=== PATIENT | female | born 1945 | race Caucasian/White ===

== ENCOUNTER → 2021-01-26 08:33 | Outpatient (CLI) | payer MEDICARE ==
[2020-10-07 07:30] VITALS: BMI 31.4
[~2021-01-26 08:33] MED LIST: AMBIEN10 MG PO; BAYER CHEWABLE81 MG PO; BUPROPION HCL100 M1 PO; CETIRIZINE HCL5 MG PO; GABAPENTIN100 MG PO; K-DUR20 MEQ PO; LEVOTHYROXINE50 MCG PO; LOPRESSOR25 MG PO; NORVASC5 MG PO; PEPCID AC20 MG PO; SALAGEN5 MG PO; VASOTEC10 MG PO; XANAX0.5 MG PO
== END | disposition home or self-care (01) ==
LOC: D.US 08:33
PROVIDERS: ATTEND Nurse Practitioner
DX: I70.219 Atherosclerosis of native arteries of extremities with intermittent claudication, unspecified extremity (principal)

== ENCOUNTER 2021-02-24 11:25 | Day surgery (SDC) | payer MEDICARE ==
[~2021-02-24] VITALS: Ht 154.9 cm; Wt 74.4 kg
--- NOTE | ~2021-02-24 | HEMODYNAMI ---
PATIENT:ZACH QUIJANO MEDICAL RECORD: [id number] : 43 LOCATION:[facility] ADMISSION DATE: 02/24/21 Generatedon:113:56 Patient name: ZACH QUIJANO Patient #: [id number] SSN: [id number] : 1945 Date of study: 02/24/2021 Page: Of Hemodynamic Procedure Report Patient Data Patient Demographics Procedure consent was obtained First Name: ZACH Gender: Female Last Name: SAMM : 1945 [facility] Initial: HUMA Age: 75 year(s) Patient #: [id number] Race: SSN: [id number] Additional ID: [id number] Contact details [address]: [address] [place] [address] RO[address] State: [place] City: [place] Zip code: [address] Past Medical History Allergies Allergen Reaction Date Comments Reported Other allergy 10/07/2020 codeine, hydrocodone, lidocaine Other allergy 02/24/2021 CODEINE, HYDROCODONE, LIDOCAINE Admission Admission Data Admission Date: 02/24/2021 Admission Time: 11:25 Lab Results Lab Result Date: 02/24/2021 Lab Result Time: 0:00 Biochemistry Name Units Result Min Max BUN mg/dl 12 --(-*--)-- 7 18 Creatinine mg/dl 1.2 --(---*)-- 0.6 1.3 CBC Name Units Result Min Max Hemoglobin g/dl 12.8 -*(----)-- 13.5 17.5 Procedure Procedure Types Cath Procedure Peripheral Cath Diagnostic Procedure Unit Nurse Peripheral Procedures AFRO Diagnostic Procedure Description Procedure Date Procedure Date: 02/24/2021 Procedure Start Time: 13:43 Procedure End Time: 13:55 Procedure Staff Name Function Geoffrey Lanadverde MD Performing Physician Gregorio Wilburn RT Monitor Patricia Huynh RT Scrub Valentina Ragland RN Nurse Procedure Data Cath Procedure Fluoroscopy Diagnostic fluoroscopy Total fluoroscopy Time: 0.5 time: 0.5 min min Diagnostic fluoroscopy Total fluoroscopy dose: 62 dose: 62 mGy mGy Contrast Material Contrast Material Type Amount (ml) Isovue 300 53 Entry Location Entry Primary Successful Side Size Upsize Upsize Entry Closure Succe ssful Closure Location (Fr) 1 (Fr) 2 (Fr) Remarks Device Remarks Femoral Right 5 Fr Lidocaine Exoseal artery not used for entry, pt is allergic Estimated blood loss: 5 ml Diagnostic catheters Device Type Used For End Catheter Placement DIAGNOSTIC UF 5Fr Abdominal catheter ([id number]) aortogram with runoff Procedure Complications No complications Procedure Medications Medication Administration Route Dosage Oxygen etCO2 Nasal cannula 2 l/min Heparin Flush Bag added to field 2 bags (1000units/500ml NS) 0.9% NaCl I.V. 100 ml/hr Versed I.V. 1 mg Fentanyl I.V. 50 mcg Versed I.V. 1 mg Fentanyl I.V. 50 mcg Versed I.V. 1 mg Fentanyl I.V. 25 mcg Hemodynamics Rest HGB: 12.8 (g/dl) Heart Rate: 65 (bpm) Snapshots Pre Cath Intra NCS Post Cath Vital Signs Time Heart Resp SPO2 etCO2 NIBP Rhythm Pain Sedation Rate (ipm) (%) (mmHg) (mmHg) Status Level (bpm) 13:32:39 63 18 100 35.9 127/40(81) NSR 0 (11) 10(A) , No pain 13:36:55 63 15 96 11.2 104/55(77) NSR 0 (11) 10(A) , No pain 13:41:07 63 16 100 0 103/42(74) NSR 0 (11) 9(A) , No pain 13:46:10 59 13 100 17.9 124/50(89) NSR 0 (11) 9(A) , No pain 13:50:24 66 14 99 14.2 96/49(76) NSR 0 (11) 9(A) , No pain 13:53:24 63 14 100 0 103/43(62) NSR 0 (11) 10(A) , No pain Medications Time Medication Route Dose Verified Delivered Reason Notes Effe ctiveness by by 13:31:44 Oxygen etCO2 2 Geoffrey Montgomery used for Nasal l/min [facility] news clipping cutter cannula 13:32:59 Heparin Flush added 2 Geoffrey aHle used for Bag to bags [facility] procedure (1000units/500ml field MD FRANCO NS) 13:33:07 0.9% NaCl I.V. 100 Geoffrey Montgomery Per ml/hr [facility] Ragland RN physician 13:36:01 Versed I.V. 1 mg Geoffrey Chaseie for AkhilHarrison Ragland RN sedation 13:36:07 Fentanyl I.V. 50 Geoffrey Chaseie for [facility] Ragland RN sedation 13:40:01 Fentanyl I.V. 50 Geoffrey Chaseie for [facility] Harrison Ragland RN sedation 13:40:56 Versed I.V. 1 mg [address] [facility] Harrison Ragland RN sedation 13:45:42 Versed I.V. 1 mg [address] [facility] Harrison Ragland RN sedation 13:45:46 Fentanyl I.V. 25 Geoffrey Chaseie for [facility] Harrison Ragland RN sedation Procedure Log Time Note 13:15:19 Gregorio Akila RT(R) sent for patient. Start room use. 13:15:20 Informed consent obtained and on chart 13:17:13 Procedure Status Peripheral. 13:17:15 Time tracking: Regular hours (M-F 7:00 - 5:00) 13:17:19 Plan of Care:Hemodynamics will remain stable., Cardiac rhythm will remain stable., Comfort level will be maintained., Respiratory function will remain adequate., Patient/ family verbilizes understanding of procedure., Procedure tolerated without complication., Recovers from procedure without complications.. 13:20:55 H&P Date Dictated: 02/18/2021 Within 30 days and on chart., H&P Addendum completed by physician on day of procedure. (MUST COMPLETE FOR ALL OUTPATIENTS). 13:21:40 Patient allergic to Other allergyCODEINE, HYDROCODONE, LIDOCAINE 13:21:42 Is the patient allergic to Iodine/contrast media? No. 13:22:42 Patient received from Pre/Post Procedure Room to CCL 2 Alert and oriented. Tansferred to table in Supine position. 13:22:43 Warm blankets applied, and daisy hugger turned on for patient comfort. 13:22:43 Correct patient and procedure confirmed by team. 13:22:44 ECG and BP/O2 sat monitors applied to patient. 13:31:20 Vital chart was started 13:31:44 Oxygen 2 l/min etCO2 Nasal cannula was administered by Valentina Ragland RN; used for procedure; Verbal order read back and verified. 13:32:45 Baseline sample Acquired. 13:32:49 Rhythm: sinus rhythm 13:32:50 Full Disclosure recording started 13:32:51 Pre-procedure instructions explained to patient. 13:32:51 Pre-op teaching completed and patient verbalized understanding. 13:32:54 Family unavailable. 13:32:57 Patient NPO since Midnight. 13:32:59 Heparin Flush Bag (1000units/500ml NS) 2 bags added to field was administered by Geoffrey Landaverde MD; used for procedure; Verbal order read back and verified. 13:33:04 Is patient on blood thinner?No 13:33:07 0.9% NaCl 100 ml/hr I.V. was administered by Valentina Ragland RN; Per physician; Verbal order read back and verified. 13:33:07 Patient diabetic? No. 13:33:08 ----Pre-sedation anethsthesia assessment.---- 13:33:11 Previous problem with sedation/anesthesia? No ? 13:33:15 Snore? No 13:33:28 Sleep apnea? No 13:33:30 Deviated septum? No 13:33:32 Opens mouth fully? Yes 13:33:34 Sticks out tongue? No 13:33:53 Pre procedure: right dorsailis pedis pulse 1+ Palpable, but thready & weak; easily obliterated 13:33:56 Pt states allergy to lidocaine after having a skin biopsy. 13:33:57 Pre procedure: left dorsailis pedis pulse 0-Absent 13:34:01 Patient pain scale 0/10 ?. 13:34:06 IV patent on arrival in right antecubital with 0.9% NaCl at [facility]. 13:34:49 Lab Result : BUN 12 mg/dl 13:34:49 Lab Result : Creatinine 1.2 mg/dl 13:34:49 Lab Result : Hemoglobin 12.8 g/dl 13:34:53 Lab results completed and on chart. 13:34:57 Bilateral groins area was prepped with chlora-prep and draped in sterile fashion 13:34:58 Alarms reviewed by R. N. 13:34:59 Sharps counted by scrub and verified by R.N. 13:35:00 Physician arrived 13:35:00 --------ALL STOP TIME OUT------ 13:35:01 Final Timeout: patient, procedure, and site verified with staff and physician. All members of the team are in agreement. 13:35:04 Bilateral groins site verified by team. 13:35:10 Fire Safety Assessment: A--An alcohol-based skin anteseptic being used preoperatively., B--The operative or invasive procedure is being performed above the xiphoid process or in the oropharynx., C--Open oxygen or nitrous oxide is being used., D--An ESU, laser, or fiber-optic light is being used., E--There are other possible contributors. 13:35:14 Physical assessment completed. ASA score P 2 - A patient with mild systemic disease as per Geoffrey Landaverde MD. 13:35:24 3a) 45-59 Moderately reduced kidney function. 13:35:43 Maximum allowable contrast dose (3.7 X eGFR X 0.75)128 ml. 13:35:47 Sedation plan: IV Moderate Sedation Medication:Versed, Fentanyl 13:36:01 Versed 1 mg I.V. was administered by Valentina Ragland RN; for sedation; Verbal order read back and verified. 13:36:07 Fentanyl 50 mcg I.V. was administered by Valentina Ragland RN; for sedation; Verbal order read back and verified. 13:38:25 Use device set Femoral Dx 13:38:35 ACIST Syringe (88258) opened to sterile field. 13:38:35 Bag Decanter (2002S) opened to sterile field. 13:38:36 Medline Cath Pack ([id number]) opened to sterile field. 13:38:38 ACIST Hand Control (62807) opened to sterile field. 13:38:38 ACIST Manifold (67128) opened to sterile field. 13:38:40 Tegaderm 4 x 4 (1626W) opened to sterile field. 13:38:43 SHEATH 5FR Dawson (KCQ970) opened to sterile field. 13:38:44 EMERALD Guide Wire (344-340) opened to sterile field. 13:40:01 Fentanyl 50 mcg I.V. was administered by Valentina Ragland RN; for sedation; Verbal order read back and verified. 13:40:56 Versed 1 mg I.V. was administered by Valentina Ragland RN; for sedation; Verbal order read back and verified. 13:43:34 Zero performed for pressure channel P1 13:43:38 Procedure started. 13:44:30 A 5 Fr sheath was inserted into the Right Femoral arteryLidocaine not used for entry, pt is allergic 13:44:46 A DIAGNOSTIC UF 5Fr catheter ([id number]) was advanced over the wire and used for Abdominal aortogram with runoff. 13:45:25 Abdominal angiogram w/ runoff was performed. 13:45:42 Versed 1 mg I.V. was administered by Valentina Ragland RN; for sedation; Verbal order read back and verified. 13:45:46 Fentanyl 25 mcg I.V. was administered by Valentina Ragland RN; for sedation; Verbal order read back and verified. 13:47:44 Angiography was performed. 13:47:49 Abdominal Aortagram was performed. 13:47:59 Left leg angiography performed. 13:48:07 Right Leg angiography performed. 13:48:16 Catheter exchanged over wire. 13:48:42 Contrast amount:Isovue 300 53ml. 13:48:50 Sheath removed intact; hemostasis achieved with Exoseal to the Right Femoral artery. 13:51:50 Procedure ended.(Physican Out) 13:53:09 Fluoroscopy time 00.50 minutes. 13:53:18 Fluoroscopy dose: 62 mGy 13:53:18 Flurop Dose total: 62 13:53:31 Dose Area Product 8190 mGy/cm. 13:53:34 Maximum allowable dose exceeded? No. 13:53:35 Sharps counted by scrub and verified by R.N. 13:53:42 Post-op/insertion site Right Femoral artery dressed using a 4 x 4 and Tegaderm. 13:53:45 Post right femoral artery:stable 13:53:47 Post Procedure Pulses reassessed and unchanged 13:53:49 Post procedure: right dorsailis pedis pulse 1+ Palpable, but thready & weak; easily obliterated. 13:53:55 Post-procedure physical assessment completed. ASA score P 1 - A normal healthy patient as per Geoffrey Landaverde MD. 13:53:57 Post procedure rhythm: sinus rhythm 13:54:00 Estimated blood loss: 5 ml 13:54:02 Post procedure instruction explained to patient.Patient verbalizes understanding. 13:54:05 Procedure and supply charges have been captured, reviewed, submitted and are correct. 13:54:10 EXOSEAL 5Fr (EX500) opened to sterile field. 13:54:30 Procedure Complication : No complications 13:54:33 Vital chart was stopped 13:54:41 AFRO Findings: PVD: mild to moderate (<70%) 13:54:45 Operative report dictated upon procedure completion. 13:54:49 See physician's report for complete and final results. 13:54:53 Report given to Pre/Post Procedure Room. 13:54:58 Patient transfered to Pre/Post Procedure Room with Stretcher. 13:55:00 Procedure ended. 13:55:00 Full Disclosure recording stopped 13:55:08 End room use (Document Last) 13:55:42 End room use (Document Last) 13:56:10 End room use (Document Last) Device Usage Item Name Manufacture Quantity Catalog Hospital Part Current Minimal L ot# / Number Charge Number Stock Stock Serial# Code ACIST Acist 1 62313 337162 996180 476461 20 Syringe Medical (16038) Systems Inc Bag Microtek 1 692274 07425 403320 5 Decanter Medical Inc. () Medline Medline 1 [id number] 566894 34014 962465 5 Cath Pack ([id number]) ACIST Hand Acist 1 98395 086821 028162 808292 5 Control Medical (44349) Systems Inc ACIST Acist 1 19508 978449 866598 768452 5 Manifold Medical (91987) Systems Inc Tegaderm 4 3M 1 1626W 063512 924035 423768 5 x 4 (1626W) SHEATH 5FR Terumo 1 RGI721 312690 836418 214512 5 Dawson (RVF322) EMERALD Cardinal 1 502-455 935046 035147 143574 5 Guide Wire Health (502-455) DIAGNOSTIC Cardinal 1 [id number] 712077 143205 426496 10 UF 5Fr Health catheter ([id number]) EXOSEAL 5Fr Cardinal 1 EX500 105713 088131 895507 10 (EX500) Health Signature Audit [place] Stage Time Signature Unsigned Intra-Procedure 02/24/2021 Gregorio Wilburn RT(R) 1:55:43 PM Intra-Procedure 02/24/2021 Valentina Ragland RN 1:56:10 PM Intra-Procedure 02/24/[address] 1:56:32 PM Harrison FRANCO Signatures Performing Physician : Signature : Geoffrey Landaverde MD Date : Time : Monitor : Gregorio Wilburn RT Signature : Date : Time : Nurse : Valentina Ragland RN Signature : Date : Time : [facility] [address] [place] [address]
--- NOTE | ~2021-02-24 | OP ---
PATIENT NAME: ZACH QUIJANO MEDICAL RECORD: [id number] :43 LOCATION:D.CAT ADMISSION DATE: SURGEON: VERNA CAMERON MD DATE OF OPERATION: 02/24/2021 PROCEDURE: Aortofemoral runoff, right femoral artery approach. CATHETERS: A 5-Greenlandic sheath, a EF catheter. The procedure was well tolerated. The patient returned to sanchez. Sheath removed. ExoSeal device was placed. FINDINGS: ABDOMINAL AORTA: The EF catheter placed to the level of the renal arteries. Nonselective renal arteriogram of right renal shows a smooth-walled vessel, free of disease. Left renal also free of disease. Abdominal aorta itself is a smooth-walled vessel, no evidence of dissection, no evidence of aneurysm. ILIAC SYSTEM: Right iliac system, including common internal and external, free of disease. FEMORAL SYSTEM ON THE RIGHT: Right common, superficial and deep showed minimal wall disease, but no flow obstructive stenosis and good 3-vessel runoff. LEFT COMMON: Internal and external, smooth-walled, free of disease. LEFT FEMORAL SYSTEM: Including common, deep, and superficial with minimal irregularities, but no flow obstructive stenosis and good 3-vessel runoff. IMPRESSION: No significant peripheral vascular disease. False positive lower extremity arterial Dopplers, certainly could secondary to her neuropathy or other. TRANSINT:[id number] Voice Confirmation ID: [id number] DOCUMENT ID: [id number] VERNA CAMERON MD CC: [id number] DICTATION DATE: 02/24/21 1401 DIESEL MACHINIST: 02/24/21 2346 [facility] 02/24/21 [facility] [address] [place] [address]
[2021-02-24] MEDS ORDERED: HCTZ25 MG PO (11:54)
[2021-02-24] MEDS ORDERED: LASIX20 MG PO (11:55)
[2021-02-24 12:15] VITALS: BP 129/38; Ht 154.9 cm; Wt 74.4 kg
[2021-02-24 12:38] LABS: BASOPHILS 0.6 % (0-2); EOSINOPHILS 1.1 % (0-7); HEMATOCRIT 38.1 % (36.0-48.0); HEMOGLOBIN 12.8 g/dL (12-16); LYMPHOCYTES 11.8 % (15-50); MCH 30.7 pg (26.0-34.0); MCHC 33.5 g/dL (31.0-37.0); MCV 91.6 fL (80.0-100.0); MEAN PLATELET VOLUME 8.5 fL (7.4-10.4); MONOCYTES 7.3 % (2-11); NEUTROPHILS 79.2 % (40-80); PLATELET COUNT 240 10x3/uL (130-400); RBC 4.16 10x6/uL (4.00-5.40); RDW 12.8 % (11.5-14.5); WBC 7.4 10x3/uL (4.8-10.8)
[2021-02-24 12:51] LABS: ANION GAP 11.5 mmol/L (8-16); CALCIUM 8.6 mg/dL (8.5-10.1); CARBON DIOXIDE 27.2 mmol/L (21.0-32.0); CHOL - HDL RATIO 2.5 ratio (2.3-4.1); CREATININE - SERUM 1.2 mg/dL (0.6-1.3); LDL-HDL RATIO 1.4 ratio (1.5-3.5); POTASSIUM - SERUM 3.7 mmol/L (3.5-5.1)
--- NOTE | 2021-02-24 14:07 | NUR ---
PT REC'D TO CATH RECOVERY ROOM 3 VIA STRETCHER. MONITORS ESTAB. NO FAMILY AT BS. SEE MOTEL MAID FLOWSHEETS. ALARMS ON AND C/L IN REACH.
--- NOTE | 2021-02-24 14:20 | NUR ---
R GROIN SITE SOFT, NO S/S BLEEDING OR HEMATOMA. R LEG/FOOT WARM WITH PALP PULSES AND BRISK CAP REFILL. PT RESTING QUIETLY, DENIES PAIN OR NEEDS. ALARMS ON AND C/L IN REACH.
--- NOTE | 2021-02-24 14:50 | NUR ---
R GROIN SITE SOFT, NO S/S BLEEDING OR HEMATOMA. PULSES PALP. PT RESTING QUIETLY, DENIES PAIN OR NEEDS. ALARMS ON AND C/L IN REACH.
--- NOTE | 2021-02-24 15:00 | NUR ---
DR CAMERON IN TO SEE PT, UPDATE GIVEN. R GROIN SITE SOFT, NO S/S BLEEDING OR HEMATOMA. R LEG/FOOT WARM WITH PALP PULSES AND BRISK CAP REFILL. ALARMS ON AND C/L IN REACH..
--- NOTE | 2021-02-24 15:10 | NUR ---
R GROIN SITE SOFT, NO S/S BLEEDING OR HEMATOAMA. PULSES PALP. HOB ELEVATED. SPRITE PROVIDED PER REQUEST. REFUSES SANDWICH AT THIS TIME. I SPOKE WITH MR NAVARRO PER PT REQUEST RE: D/C AT 1600 AND HIM PICKING PT UP. VSS. C/L IN REACH.
--- NOTE | 2021-02-24 15:30 | NUR ---
R GROIN SITE SOFT, NO S/S BLEEDING OR HEMATOMA. PULSES PALP. PIV D/C'D INTACT, PRESSURE HELD X 5 MIN, BRUISING NOTED, DSG APPLIED. PT REPORTS "I ALWAYS HAVE TROUBLE WITH IVS DOING THAT".
--- NOTE | 2021-02-24 15:38 | NUR ---
ALL DISCHARGE INSTRUCTIONS REVIEWED WITH PT, INCLUDING RESTRICTIONS, MEDS AND F/U APPT, PT VERBALIZES UNDERSTANDING. ALLOWED UP TO GET DRESSED AND GO TO BR INDEPENDENTLY.
--- NOTE | 2021-02-24 16:02 | NUR ---
PT D/C'D VIA WC TO PRIVATE VEHICLE WITH ALL PAPERWORK AND BELONGINGS.
== END 2021-02-24 16:02 | disposition home or self-care (01) ==
LOC: D.CATH 11:25
PROVIDERS: ATTEND Internal Medicine Interventional Cardiology
DX: I49.9 Cardiac arrhythmia, unspecified (principal); Z86.79 Personal history of other diseases of the circulatory system; R06.00 Dyspnea, unspecified; I20.9 Angina pectoris, unspecified; I73.9 Peripheral vascular disease, unspecified